=== PATIENT | female | born 1990 | race Caucasian/White ===

== ENCOUNTER 2016-12-06 13:58 | Emergency (ER) | payer BC ==
[~2016-12-06] VITALS: Ht 170.2 cm; Wt 108.0 kg
[2016-12-06 14:01] VITALS: BP 144/95
[2016-12-06] MEDS ORDERED: BISACODYL 5 MG EC TABLET PO ONE (15:00)
[2016-12-06] MEDS ORDERED: PINK LADY ENEMA 1,000 ML PR ONE (15:00)
[2016-12-06] MEDS ORDERED: METHYLNALTREXONE 12 MG/0.6 ML SQ ONE (15:00)
== END 2016-12-06 16:32 | disposition home or self-care (01) ==
LOC: ED 16:26
DX: K59.00 Constipation, unspecified (principal); R10.84 Generalized abdominal pain; Z90.49 Acquired absence of other specified parts of digestive tract; Z91.040 Latex allergy status; Z88.6 Allergy status to analgesic agent; Z88.5 Allergy status to narcotic agent; Z91.041 Radiographic dye allergy status
CPT/HCPCS: 74000; 96372

== ENCOUNTER → 2017-01-29 | Outpatient (CLI) | payer BC | END | disposition home or self-care (01) | LOC: CARD 08:52 | PROVIDERS: ATTEND Psychiatry & Neurology Neurology | DX: F07.81 Postconcussional syndrome (principal) | CPT/HCPCS: 95819 ==